=== PATIENT | female | born 1995 | race Caucasian/White ===

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

== ENCOUNTER → 2018-09-22 | Outpatient (CLI) | payer BC ==
[2018-09-22 23:53] LABS: T4, Free (Free Thyroxine) 1.2 ng/dL (0.83-1.43)
== END | disposition home or self-care (01) ==
LOC: LABWHC1 15:51
PROVIDERS: ATTEND Internal Medicine Critical Care Medicine
DX: F41.9 Anxiety disorder, unspecified (principal); R53.83 Other fatigue
CPT/HCPCS: 36415; 84439; 84443